=== PATIENT | female | born 1980 | race Caucasian/White ===

== ENCOUNTER 2017-11-01 09:05 | Emergency (ER) | payer MEDICARE, MEDICAID ==
[2017-11-01] MEDS ORDERED: Ibuprofen TAB* 400 MG PO ONE (09:48)
--- NOTE | 2017-11-01 10:32 | RAD ---
CLINICAL HISTORY: Bilateral flank pain with "dark urine" COMPARISON: None TECHNIQUE: Noncontrast CT examination of the abdomen and pelvis from the lung bases through the initial tuberosities. FINDINGS: VISUALIZED LUNG BASES: The visualized lung bases are grossly clear. There is no pleural effusion. ABDOMEN AND PELVIS: Evaluation of the solid organs and vasculature is limited without intravenous contrast. The liver is enlarged measuring up to 24.5 cm in greatest cephalocaudal dimension. At the right hepatic dome (image 22) there is a hypoattenuating lesion measuring 1 cm that is not more reliably evaluated on this CT examination. The homogenously attenuating spleen is enlarged measuring 14.8 cm in greatest axial dimension. The pancreas and adrenal glands are grossly normal in appearance. The gallbladder is normal. The kidneys are normal in appearance without focal mass, calcification or signs of hydronephrosis. Evaluation of the gastrointestinal tract is limited without oral contrast. The small and large bowel are not distended. The appendix is not confidently visualized. There is no gross retroperitoneal or mesenteric lymphadenopathy. The pelvic viscera is normal in appearance. The abdominal aorta and iliac arteries are normal in course and diameter. There are no sinister bone lesions. IMPRESSION: 1. No renal calculi or signs of hydronephrosis. 2. Hepatosplenomegaly. Please correlate to LFTs.
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
[2017-11-01 11:21] VITALS: BP 116/75
[2017-11-01 16:37] LABS: ABS Basophils 0 10^3/ul (0-0.2); ABS Eosinophils 0.1 10^3/ul (0-0.6); ABS Lymphocytes 1.6 10^3/ul (1.0-4.8); ABS Monocytes 0.3 10^3/ul (0-0.8); ABS Neutrophils 1.9 10^3/ul (1.5-7.7); ABS Nucleated RBC 0 10^3/ul; Eosinophil % 2.2 % (0-6); Hematocrit 40 % (35-47); Hemoglobin 13.7 g/dl (12.0-16.0); Mean Corpuscular HGB Conc 34 g/dl (31-36); Mean Corpuscular Hemoglobin 31 pg (27-31); Mean Corpuscular Volume 90 fL (80-97); Mean Platelet Volume 9 um3 (7.4-10.4); Nucleated Red Blood Cells % 0; Platelet Count 137 10^3/ul (150-450); Red Blood Count 4.45 10^6/ul (4.0-5.4); Red Cell Distribution Width 13 % (10.5-15); White Blood Count 3.9 10^3/ul (3.5-10.8)
[2017-11-01 16:53] LABS: EGFR Non-African American 104.4 (>60)
== END 2017-11-01 11:20 | disposition home or self-care (01) ==
LOC: UCEAST 09:05
DX: R16.0 Hepatomegaly, not elsewhere classified (principal); F17.210 Nicotine dependence, cigarettes, uncomplicated; Z91.040 Latex allergy status
CPT/HCPCS: 36415; 74176; 80053; 80061; 81003; 83036; 85025; 86803; 99212; A9270-GY; G0463

== ENCOUNTER 2019-02-06 18:16 | Emergency (ER) | payer MEDICARE, MEDICAID ==
[2019-02-06 19:21] VITALS: BP 131/77
--- NOTE | 2019-02-06 20:12 | UC ---
Skin Complaint HPI - HPI Summary HPI Summary: 1 day history of increasing erythema of the tip of the right hand pinky finger. Has gel nails in place, and a 3 mm white area is barely visible under the nail Declines attempted removal of the gel nail to improve ability to assess this. No splinter or injury. - History of Current Complaint Chief Complaint: UCUpperExtremity Time Seen by Provider: 02/06/19 20:11 Stated Complaint: INFECTED PINKY Hx Obtained From: Patient Hx Last Menstrual Period: 02/06/19 Onset/Duration: Gradual Onset, Lasting Days - 1 Onset Severity: Mild Current Severity: Moderate Pain Intensity: 7 Location: Discrete Aggravating Factor(s): Touch Alleviating Factor(s): Other - elevation Associated Signs & Symptoms: Positive: Negative - Allergy/Home Medications Allergies/Adverse Reactions: Allergies Allergy/AdvReac Type Severity Reaction Status Date / Time latex Allergy Rash Verified 02/06/19 19:21 Home Medications: Home Medications Methylphenidate TAB* [Ritalin TAB*] 50 mg PO TID 02/06/19 [History Confirmed ] PMH/Surg Hx/FS Hx/Imm Hx Previously Healthy: Yes Psychological History: Depression - Surgical History Surgical History: Yes Surgery Procedure, Year, and Place: carpel tunnel surgery, tubal ligation. ear tubes - Family History Known Family History: Positive: Unknown, Cardiac Disease - mother, Respiratory Disease - mother of COPD, Other - father post trauma (fell from a roof ) - Social History Lives: With Family Alcohol Use: None Substance Use Type: None Smoking Status (MU): Heavy Every Day Tobacco Smoker Type: Cigarettes Amount Used/How Often: 1/2 PPD Length of Time of Smoking/Using Tobacco: since age 17 Review of Systems All Other Systems Reviewed And Are Negative: Yes Constitutional: Positive: Negative Skin: Positive: Negative Eyes: Positive: Negative ENT: Positive: Negative Respiratory: Positive: Negative Cardiovascular: Positive: Negative Musculoskeletal: Positive: Arthralgia Neurological: Positive: Negative Psychological: Positive: Negative Physical Exam Triage Information Reviewed: Yes Appearance: Well-Appearing, Pain Distress - mild Vital Signs: Initial Vital Signs Temp 98.9 F 02/06/19 19:16 Pulse 69 02/06/19 19:16 Resp 16 02/06/19 19:16 BP 131/77 02/06/19 19:16 Pulse Ox 100 02/06/19 19:16 ENT: Positive: Normal ENT inspection Respiratory: Positive: Lungs clear, Normal breath sounds Cardiovascular: Positive: RRR, No Murmur Musculoskeletal: Positive: Strength Intact, ROM Intact Neurological Exam: Normal Skin Exam: Other - eryhtema of distal fifth digit right hand to the level of the DIP joint, tender, no pain in hand. Acrylic nail in place. Possible purulent collection under nail approx 4 mm, declines removal of acrylic nail Skin: Positive: Other - Nail bed area without purulent collection. Course/Dx - Course Course Of Treatment: cephalexin for treatment of cellulitis. Advised removal of acrylic nail for improved evaluation, possible trephination. - Diagnoses Provider Diagnosis: Cellulitis of finger of right hand Discharge - Sign-Out/Discharge Documenting (check all that apply): Patient Departure All imaging exams completed and their final reports reviewed: No Studies - Discharge Plan Condition: Good Disposition: HOME Prescriptions: cephALEXin [Keflex] 500 mg PO TID #21 capsule Patient Education Materials: Cellulitis (ED) Referrals: Mahnaz Tirado NP [Primary Care Provider] - Additional Instructions: Begin soaking your finger every 3 hours while awake in hot water and epsom salts. Cephalexin has been prescripbed to treat the inflection. You might need to have a collecting abscess removed from under the nail, but the gel nail needs to be removed first. Follow up if you ar not seeing improvement in 2 to 3 days, or if the finger worsens. - Billing Disposition and Condition Condition: GOOD Disposition: Home
[2019-02-06] MEDS ORDERED: Cephalexin CAP* 500 MG PO ONE (20:32)
== END 2019-02-06 20:45 | disposition home or self-care (01) ==
LOC: UCEAST 18:16
DX: L03.011 Cellulitis of right finger (principal); F17.210 Nicotine dependence, cigarettes, uncomplicated; Z91.040 Latex allergy status
CPT/HCPCS: 99212; A9270-GY; G0463

== ENCOUNTER → 2019-08-18 06:50 | Day surgery (SDC) | payer MEDICARE, MEDICAID ==
[~2019-08-18 06:50] MED LIST: Acetaminophen TAB* 325 MG ONE; Acetaminophen TAB* 325 MG PO ONE; Acetaminophen TAB* 325 MG PO PRN; Buffered Lidocaine 1% SYRIN* 1 ML/SYRINGE INTRADERM ONE; Bupivacaine 0.25% SDV* 30 ML ONE; Dexamethasone IV* 4 MG/ML 1 ML (4 MG) ONE; DiMENhydriNATE IV* 50 MG/ML VIAL IV PUSH PRN; Famotidine IV* 10 MG/ML 2 ML (20 mg) IV ONE; Famotidine IV* 10 MG/ML 2 ML (20 mg) ONE; Ketorolac INJ* 30 MG/ML 1 ML VIAL ONE; Lactated Ringers 1000 ML Bag* 1,000 ML IV SCH; Levalbuterol 0.63MG/3ML NEB* UNIT OF USE INH PRN; Metoprolol Tartrate IV* 1 MG/ML 5 ML VIAL ONE; Midazolam* 1 MG/ML 2 ML VIAL (2 MG) ONE; Naloxone* 0.4 MG/ML 1 ML VIAL IV PRN; Ondansetron INJ* 2 MG/ML VIAL IV PRN; Propofol* 10 MG/ML 20 ML BTL ONE; ceFAZolin 2 GM PREMIX in ORs 2 GM/50 ML BAG ONE; diPHENhydraMINE IV* 50 MG/ML 1 ml VIAL (BENADRYL) IV PRN; fentaNYL* 50 MCG/ML 2 ML VIAL (100 MCG VIAL) IV PRN; fentaNYL* 50 MCG/ML 2 ML VIAL (100 MCG VIAL) ONE
[2019-08-18 12:25] VITALS: BP 140/86
--- NOTE | 2019-08-18 13:52 | OP ---
DATE OF OPERATION: 08/18/19 - [facility] DATE OF : 80 SURGEON: Herman Mukherjee MD RV TECHNICIAN: MONALISA Cline. An news production assistant was needed for the procedure to aid in positioning of the arm and retraction. ANESTHESIOLOGIST: Dr. Winslow. ANESTHESIA: General. PRE-OP DIAGNOSES: 1. Left carpal tunnel syndrome. 2. 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 POST-OP DIAGNOSES: 1. Left carpal tunnel syndrome. 2. 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 OPERATIVE PROCEDURE: 1. Left endoscopic carpal tunnel release. 2. Left ulnar nerve decompression at the elbow with anterior transmuscular transposition. INDICATIONS: Ms. Bernstein has very symptomatic ulnar and median nerves. We talked about treatment options. She had wanted to proceed with surgery. She understands there are risks including the risk of persistent neuritis as well as hematoma and wound problems. ESTIMATED BLOOD LOSS: 2 mL. COMPLICATIONS: None. FINDINGS: See above and below. DESCRIPTION OF PROCEDURE: Ms. Bernstein was seen in the preoperative holding area. The correct site, side and procedure were identified. We came back to the operating room. The arm was prepped and draped in the usual fashion and a time- out was performed. The arm was exsanguinated with the Esmarch and the tourniquet was inflated to 250 mmHg. I went ahead and made a 1 cm transverse incision just ulnar to the palmaris longus tendon. Dissection was carried down. The distal antebrachial fascia was split transversely bluntly with the tenotomy scissors. The two-pronged skin hook was placed underneath that. The carpal tunnel was dilated open and then the MicroAire Endoscopic Carpal Tunnel System was introduced into the carpal tunnel. When it was in the appropriate location, I elevated the blade and the release was carried out from distal to proximal. Once the entirety of the release was performed and confirmed, I went ahead and released the distal antebrachial fascia proximally with the tenotomy scissors. The wound was then irrigated out and closed with a 4-0 Prolene suture and a Steri-Strip. I then made a curvilinear incision centered over the cubital tunnel. Dissection was carried down through the subcutaneous tissue. The medial antebrachial cutaneous nerve was identified and preserved throughout the procedure. I went ahead and released the fascia just proximal to the Choe's ligament. The release was carried out past the arcade of [place] with the use of an appendiceal retractor for visualization. I then came distally and released the Choe's ligament. I then released the superficial FCU fascia. The 2 heads of the FCU were split and then the subfascial layer was released. There was a bit of instability at this point. She had a lot of tension since preoperatively, so I went ahead and decided to transpose her. I raised full thickness flap off the flexor pronator fascia, I went ahead and raised step cut fascial flaps with the flexor pronator fascia and excised the muscular septi. The medial intramuscular septum was excised, the leading edge of the FCU fascia was excised. Once I had a nice neurolysis performed, I went ahead and transposed the nerve up on to the muscular bed. The two ends of the fascial flaps were then sewn end-to-end with 4-0 Ethibond suture. Hemostasis was obtained with a bipolar and a Bovie. The wound was irrigated out. The subcutaneous tissue was reapproximated with 3-0 Vicryl suture. The skin was closed with 3-0 Monocryl and Steri-Strips. Marcaine 0.25% was infiltrated. The wounds were dressed with Xeroform, 4x4s and ABD, a sterile Webril and then a long arm splint with lateral buttress was applied. She was taken to the recovery room in stable condition. [id number]/[facility] #: [id number] MTDD
== END | disposition home or self-care (01) ==
LOC: OR 06:50
PROVIDERS: ATTEND Orthopaedic Surgery Hand Surgery
DX: G56.02 Carpal tunnel syndrome, left upper limb (principal); G56.22 Lesion of ulnar nerve, left upper limb; M79.7 Fibromyalgia; F41.8 Other specified anxiety disorders; J45.909 Unspecified asthma, uncomplicated; G47.33 Obstructive sleep apnea (adult) (pediatric); F17.210 Nicotine dependence, cigarettes, uncomplicated
CPT/HCPCS: A9270-GY; J0690; J1100; J1885; J2250; J2704; J3010; J3490